=== PATIENT | male | born 1995 | race Two or more races ===

== ENCOUNTER 2025-07-15 12:03 | Inpatient (IN) | payer MEDICAID ==
[~2025-07-15] VITALS: Ht 172.7 cm; Wt 98.4 kg
[2025-07-15 12:30] VITALS: BP 138/83; TEMP 99.3; O2SAT 100
[2025-07-15] MEDS ORDERED: ONDANSETRON HCL/PF 4 MG/2 ML VIAL IVP PRN (13:00)
[2025-07-15] MEDS ORDERED: hydrALAZINE HCL IV 20 MG VIAL IV PRN (13:00)
[2025-07-15] MEDS ORDERED: ACETAMINOPHEN 325 MG TABLET PO PRN (13:00)
[2025-07-15] MEDS ORDERED: CLINDAMYCIN PHOSPHATE IV 600 MG/4 ML VIAL IV SCH (14:00)
[2025-07-15] MEDS: MORPHINE SULFATE INJ 4 MG/ML DISP.SYRIN IV PRN (14:17)
[2025-07-15] MEDS: CLINDAMYCIN 600 MG in IV NS 0.9% 46 ML IV SCH (14:19)
[2025-07-15 16:00] VITALS: BP 132/70; TEMP 99.1; O2SAT 100
[2025-07-15] MEDS ORDERED: DOSING PER PHARMACY-VANCOMYCIN IV XX PRN (16:00)
[2025-07-15] MEDS ORDERED: DOSING PER PHARMACY-CEFEPIME IVPB XX PRN (16:00)
[2025-07-15 17:11] LABS: PLATELET COUNT (AUTO) 203 K/uL (150-450); RED BLOOD CELL COUNT(AUTO) 4.59 MIL/uL (4.5-6.0); RED CELL DISTRIBUTION WIDTH 12.9 % (11.5-15.0); WHITE BLOOD COUNT (AUTO) 9.5 K/uL (4.3-11.0)
[2025-07-15 17:12] LABS: CALCIUM, SERUM 8.4 mg/dL (8.5-10.1); CREATININE 0.7 mg/dL (0.6-1.3); SODIUM SERUM 133.0 mmol/L (136-145); UREA NITROGEN, BLOOD 13.0 mg/dL (7-18)
[2025-07-15 17:18] LABS: ASPARTATE AMINOTRANSFERASE 13.0 U/L (15-37); TOTAL PROTEIN, SERUM 6.7 g/dL (6.4-8.2)
[2025-07-15 17:27] LABS: LDL 75.0 mg/dL (0-99)
[2025-07-15 18:16] LABS: BARBITURATE, URINE NEGATIVE (NEGATIVE); BENZODIAZEPINE, URINE NEGATIVE (NEGATIVE); CANNABINOID, URINE NEGATIVE (NEGATIVE); COCCAINE, URINE NEGATIVE (NEGATIVE)
[2025-07-15 18:18] LABS: AMPHETAMINE, URINE POSITIVE (NEGATIVE); OPIATE, URINE POSITIVE (NEGATIVE)
[2025-07-15] MEDS: VANCOMYCIN 1 GM in IV D5W 250ml IV ONE (19:42)
[2025-07-15 20:00] VITALS: BP 112/72; TEMP 99.7; O2SAT 100
[2025-07-15] MEDS: VANCOMYCIN 500 MG in IV D5W 100ml IV ONE (20:04)
[2025-07-15] MEDS: HEPARIN SODIUM, PORCINE 5000 UNITS/1 ML VIAL SQ SCH (20:39)
[2025-07-15] MEDS: CEFEPIME 2 GM in IV D5W 100 ML IV SCH (21:08)
[2025-07-16] MEDS: VANCOMYCIN HCL 1.25 GM in IV D5W 250 ML IV SCH (04:11)
[2025-07-16 08:00] VITALS: BP 117/80; TEMP 98.1; O2SAT 100
[2025-07-16 12:47] LABS: PLATELET COUNT (AUTO) 255 K/uL (150-450); RED BLOOD CELL COUNT(AUTO) 4.84 MIL/uL (4.5-6.0); RED CELL DISTRIBUTION WIDTH 12.7 % (11.5-15.0); WHITE BLOOD COUNT (AUTO) 8.0 K/uL (4.3-11.0)
[2025-07-16 12:59] LABS: ASPARTATE AMINOTRANSFERASE 9.0 U/L (15-37); CALCIUM, SERUM 8.8 mg/dL (8.5-10.1); CREATININE 0.8 mg/dL (0.6-1.3); PHOSPHORUS 4.0 mg/dL (2.5-4.9); SODIUM SERUM 130.0 mmol/L (136-145); TOTAL PROTEIN, SERUM 7.2 g/dL (6.4-8.2); UREA NITROGEN, BLOOD 12.0 mg/dL (7-18)
[2025-07-16 13:01] LABS: LACTIC ACID 1.6 mmol/L (0.4-2.0)
[2025-07-16 14:49] LABS: HIV-1/2 ANTIBODY NON REACTIVE (NONREACTIVE)
[2025-07-16 16:00] VITALS: BP 119/81; TEMP 97.9; O2SAT 99
[2025-07-16 20:00] VITALS: BP 126/89; TEMP 98.4; O2SAT 100
[2025-07-17 05:42] LABS: CALCIUM, SERUM 9.1 mg/dL (8.5-10.1); CREATININE 0.9 mg/dL (0.6-1.3); SODIUM SERUM 135.0 mmol/L (136-145); UREA NITROGEN, BLOOD 15.0 mg/dL (7-18)
[2025-07-17 07:00] VITALS: BP 101/71; TEMP 97.7; O2SAT 98
[2025-07-17] MEDS: CEFEPIME 2 GM in IV D5W 100 ML IV SCH (08:11)
[2025-07-17 16:00] VITALS: BP 104/69; TEMP 98.1; O2SAT 100
[2025-07-17 20:00] VITALS: BP 115/72; TEMP 208.8; TEMP 98.2; O2SAT 98
[2025-07-17 22:10] LABS: HEPATITIS B CORE AB, TOTAL Negative (Negative)
[2025-07-18 08:00] VITALS: BP 116/83; TEMP 98.1; O2SAT 99
[2025-07-18] MEDS: ENSURE ENLIVE CHOC 237 ML CAN PO SCH (08:44)
[2025-07-18] MEDS: DAKINS QUARTER STRENGTH (0.125%) 480 ML BOTTLE TOP SCH (17:36)
[2025-07-18 20:00] VITALS: BP 92/62; TEMP 98.1; O2SAT 97
[2025-07-19 04:33] LABS: PLATELET COUNT (AUTO) 281 K/uL (150-450); RED BLOOD CELL COUNT(AUTO) 4.69 MIL/uL (4.5-6.0); RED CELL DISTRIBUTION WIDTH 12.8 % (11.5-15.0); WHITE BLOOD COUNT (AUTO) 6.8 K/uL (4.3-11.0)
[2025-07-19 04:56] LABS: CALCIUM, SERUM 9.0 mg/dL (8.5-10.1); CREATININE 1.0 mg/dL (0.6-1.3); PHOSPHORUS 4.4 mg/dL (2.5-4.9); SODIUM SERUM 139.0 mmol/L (136-145); UREA NITROGEN, BLOOD 13.0 mg/dL (7-18)
[2025-07-19 08:00] VITALS: BP 118/81; TEMP 98.1; O2SAT 98
[2025-07-19] MEDS ORDERED: CT SWABBABLE VALVE TRANS SET 1 EA INFUS.SET MC ONE (14:51)
[2025-07-19] MEDS ORDERED: IOHEXOL-300 100 ML VIAL IV ONE (14:51)
[2025-07-19] MEDS ORDERED: IV NS 0.9% 250 ML IV ONE (14:52)
[2025-07-19 16:00] VITALS: BP 124/80; TEMP 98.2; O2SAT 99
[2025-07-19] MEDS: VANCOMYCIN HCL 1.25 GM in IV D5W 250 ML IV SCH (17:10)
[2025-07-19 20:00] VITALS: BP 111/72; TEMP 98.1; O2SAT 98
[2025-07-20 06:44] LABS: PLATELET COUNT (AUTO) 289 K/uL (150-450); RED BLOOD CELL COUNT(AUTO) 4.50 MIL/uL (4.5-6.0); RED CELL DISTRIBUTION WIDTH 12.4 % (11.5-15.0); WHITE BLOOD COUNT (AUTO) 6.5 K/uL (4.3-11.0)
[2025-07-20 06:49] LABS: CALCIUM, SERUM 8.6 mg/dL (8.5-10.1); CREATININE 1.0 mg/dL (0.6-1.3); PHOSPHORUS 4.2 mg/dL (2.5-4.9); SODIUM SERUM 139.0 mmol/L (136-145); UREA NITROGEN, BLOOD 16.0 mg/dL (7-18)
[2025-07-20 08:00] VITALS: BP 120/81; TEMP 98.1; O2SAT 98
[2025-07-20] MEDS ORDERED: IOHEXOL-300 100 ML VIAL IV ONE (11:12)
[2025-07-20] MEDS ORDERED: IV NS 0.9% 250 ML IV ONE (11:12)
[2025-07-20 16:00] VITALS: BP 117/76; TEMP 98.2; O2SAT 97
[2025-07-20 20:00] VITALS: BP 131/79; TEMP 98.2; O2SAT 97
[2025-07-21 02:08] LABS: CHLAMYDIA TRACHOMATIS NAA Negative (Negative); NEISSERIA GONORRHOEAE NAA Negative (Negative)
[2025-07-21 04:04] LABS: PLATELET COUNT (AUTO) 298 K/uL (150-450); RED BLOOD CELL COUNT(AUTO) 4.51 MIL/uL (4.5-6.0); RED CELL DISTRIBUTION WIDTH 12.5 % (11.5-15.0); WHITE BLOOD COUNT (AUTO) 7.0 K/uL (4.3-11.0)
[2025-07-21 04:14] LABS: CALCIUM, SERUM 8.9 mg/dL (8.5-10.1); CREATININE 0.9 mg/dL (0.6-1.3); PHOSPHORUS 4.4 mg/dL (2.5-4.9); SODIUM SERUM 138.0 mmol/L (136-145); UREA NITROGEN, BLOOD 14.0 mg/dL (7-18)
[2025-07-21 09:02] VITALS: BP 117/83; TEMP 97.9; O2SAT 97
[2025-07-21] MEDS ORDERED: SULF1TAB48 PO (16:52)
== END 2025-07-21 18:00 | disposition home or self-care (01) | DRG 344 ==
LOC: MED 12:05
PROVIDERS: ADMIT Internal Medicine; ATTEND Student in an Organized Health Care Education/Training Program
PROC: 05HC33Z Insertion of Infusion Device into Left Basilic Vein, Percutaneous Approach (ICD-10-PCS; principal; 2025-07-17)
DX: M00.9 Pyogenic arthritis, unspecified (principal); E44.0 Moderate protein-calorie malnutrition; I82.612 Acute embolism and thrombosis of superficial veins of left upper extremity; Z59.00 Homelessness unspecified; E87.1 Hypo-osmolality and hyponatremia; L02.416 Cutaneous abscess of left lower limb; L03.116 Cellulitis of left lower limb; L03.114 Cellulitis of left upper limb; L02.512 Cutaneous abscess of left hand; L02.413 Cutaneous abscess of right upper limb; F19.10 Other psychoactive substance abuse, uncomplicated; Z68.33 Body mass index [BMI] 33.0-33.9, adult; T82.868A Thrombosis due to vascular prosthetic devices, implants and grafts, initial encounter; F15.90 Other stimulant use, unspecified, uncomplicated; Y84.8 Other medical procedures as the cause of abnormal reaction of the patient, or of later complication, without mention of misadventure at the time of the procedure; Y92.230 Patient room in hospital as the place of occurrence of the external cause
CPT/HCPCS: 36415; 73201-TC; 73700-TC; 80048-TC; 80053-TC; 80061-TC; 80202-TC; 83605-TC; 83735-TC; 84100-TC; 84439-TC; 84443-TC; 85025-TC; 86317; 86704; 86803; 87040-TC; 87070-TC; 87081-TC; 87491; 87591; 87806; 93307-TC; 93971-TC; A4223; G0378; J0692; J1644; J2270; J3373; J3490; J7050; J7060; Q9967